=== PATIENT | female | born 1965 | race Caucasian/White ===

== ENCOUNTER 2025-01-23 11:14 | Emergency (ER) | payer OTHER, SELFPAY ==
--- NOTE | ~2025-01-23 | XR_ITS ---
XR foot LT min 3V Ordering provider: Jacquelyn Olvera APRN History: . 3 4 toes pain post fall . Comparison: None. FINDINGS: BONES: No acute fracture or dislocation. Calcaneal spur. JOINT SPACES: Normal. No tarsal coalition. SOFT TISSUES: Normal. IMPRESSION: No acute osseous abnormality left foot. Reviewed, dictated and finalized at location A.
--- NOTE | ~2025-01-23 | XR_ITS ---
XR hip RT 2V w AP pelvis Ordering provider: Jacquelyn Olvera APRN History: . pain post fall x 2 days . Comparison: None. FINDINGS: BONES: No acute fracture or dislocation. HIP JOINT SPACES: Mild bilateral osteoarthritic changes. SACROILIAC JOINT SPACES/LUMBAR SPINE: The sacroiliac joint spaces are normal. Mild degenerative harrington es of the visualized lower lumbar spine. PUBIC SYMPHYSIS: Normal. SOFT TISSUES: Normal. IMPRESSION: No acute osseous abnormality pelvis and right hip. Reviewed, dictated and finalized at location A.
--- NOTE | ~2025-01-23 | XR_ITS ---
HISTORY: dorsal foot pain post fall 2 days COMPARISON: None TECHNIQUE: 3 views of the right foot were performed FINDINGS: No acute or subacute fracture or dislocation is appreciated. No significant degenerative disease is noted. The base of the fifth metatarsal is intact. No calcaneal spur is noted. Trace dorsal soft tissue swelling is present. IMPRESSION: Soft tissue swelling, without acute or subacute fracture. Reviewed, dictated and finalized at location A.
--- NOTE | 2025-01-23 11:16 | ED_ITS ---
HPI - General Adult General Chief complaint: Extremity Injury, Lower Stated complaint: ?broken toe ?whiplash Time Seen by Provider: 01/23/25 11:20 Source: patient and RN notes reviewed Mode of arrival: ambulatory Limitations: no limitations History of Present Illness HPI narrative: 59-year-old female presents to the [facility] with concerns of bilateral foot pain, toe pain, right hip pain and lateral neck pain post trip and fall on Thursday night, 2 nights ago. Related Data Allergies Allergy/AdvReac Type Severity Reaction Status Date / Time Penicillins Allergy Intermediate rash Verified 01/23/25 11:51 acetaminophen (From Vicodin) AdvReac other Verified 01/23/25 11:51 hydrocodone (From Vicodin) AdvReac other Verified 01/23/25 11:51 bee stings AdvReac Intermediate Swelling Uncoded 01/23/25 11:51 Review of Systems Review of Systems: All systems reviewed & are unremarkable except as noted in HPI and below Constitutional: Constitutional: Reports no additional constitutional complaints ENT: Reports system reviewed and no additional complaints, except as documented Cardiovascular: Cardiovascular: Reports no additional cardiovascular complaints, Denies chest pain and Denies dyspnea Respiratory: Respiratory: Reports no additional respiratory complaints, Denies chest congestion, Denies cough and Denies dyspnea Musculoskeletal: Musculoskeletal: Reports as per HPI, Reports back pain and Reports arthralgias Integumentary/Breasts: Skin/Breast: Reports system reviewed and no additional complaints, except as docu PMFSH Comments At the time of my signature, I reviewed and agree with the nursing past medical, surgical, social, and family history. There is no relevant family history pertinent to the patient complaint. Exam Const: General: cooperative, healthy appearing, comfortable, no acute distress, well developed, alert and well nourished Nutritional Appearance: well nourished Orientation/consciousness: patient oriented x3 Limitations: no limitations HENMT: Head: normal to inspection Ears: hearing grossly normal bilaterally and external ears normal Mouth: Yes Normal oral and palatal mucosa present, Yes lip normal, Yes tongue normal and Yes moist mucous membranes Eyes: General: appearance normal, both eyes and all related structures Alignment and Position: alignment normal Neck: Neck: normal visual inspection, full ROM, no lymphadenopathy and no meningeal signs Chest: Chest palpation & inspection: normal inspection of the chest Resp: Effort & Inspection: normal respiratory effort and able to speak in complete sentences Auscultation: clear to auscultation bilaterally, no crackles, no rales, no rhonchi and no wheezes Cardio: Rate: regular rate Back/Spine/Pelvis: Back: no CVA tenderness and No ecchymosis Cervical Spine: normal cervical lordosis, cervical muscular tenderness (Right and left lateral), No Cervical spine tenderness and No step off deformity Thoracic/Lumbar Spine: No thoracic spinal tenderness and No lumbar spinal tenderness Sacroiliac joints: on the right tender to palpation Skin: General skin exam: normal color and no rashes or lesions noted Neuro: General: patient oriented x3, gait normal, moves all extremities and no meningeal signs Cognition (Neuro): normal cognition Speech: normal speech Gait exam (Neuro): Normal gait present Extrem: General: normal to inspection, full ROM, capillary refill normal and normal gait Right lower extremity: hip/thigh Details: tenderness (Lateral hip) Other: Bilateral 2nd, 3rd and 4th toe pain with tenderness. Right dorsal foot tenderness generalized Psych: Appearance: grossly normal and well kempt Mental Status: mental status grossly normal Speech and movement: Normal speech and movement present and Clear speech present Affect: normal affect Attitude: cooperative Course Course Level of Care: Express Care Visit Vital Signs Vital signs: Vital Signs Temperature 97.7 F 01/23/25 11:38 Pulse Rate 89 01/23/25 11:38 Respiratory Rate 16 01/23/25 11:38 Blood Pressure 111/72 01/23/25 11:38 Pulse Oximetry 99 01/23/25 11:38 Temperature 97.7 F 01/23/25 11:38 Pulse Rate 89 01/23/25 11:38 Respiratory Rate 16 01/23/25 11:38 Blood Pressure 111/72 01/23/25 11:38 Pulse Oximetry 99 01/23/25 11:38 Reviewed Medical Decision Making MDM Narrative Medical decision making narrative: Patient sitting comfortably in exam room. Patient is nontoxic, vitals stable. Patient presents with foot pain post fall, right hip pain post fall, lateral neck pain with no midline tenderness. No loss retention of bowel or bladder. No saddle anesthesia. No midline tenderness. Patient is appropriate for outpatient treatment with close follow-up, x-rays are negative. Patient reports having muscle relaxers at home. Will prescribe the Lidoderm patch. Discharge instructions reviewed with patient, as well as provided in writing per nursing staff. The instructions also include specific and strict return/GO TO THE ER as well as f/u information. All questions have been answered, and the patient deny any further questions with discharge and discharge plan. Some parts of this dictation were generated by voice recognition software and may contain typographical and/or grammatical inaccuracies. Differential Diagnosis Differential Diagnosis: Fall, contusion, strain or sprain Medical Records Medical records reviewed: Yes I reviewed the external patient's medical records. Vital Signs Vital Signs: Vital Signs Temperature 97.7 F 01/23/25 11:38 Pulse Rate 89 01/23/25 11:38 Respiratory Rate 16 01/23/25 11:38 Blood Pressure 111/72 01/23/25 11:38 Pulse Oximetry 99 01/23/25 11:38 Temperature 97.7 F 01/23/25 11:38 Pulse Rate 89 01/23/25 11:38 Respiratory Rate 16 01/23/25 11:38 Blood Pressure 111/72 01/23/25 11:38 Pulse Oximetry 99 01/23/25 11:38 Reviewed Lab Data Lab results reviewed: Yes I reviewed the patient's lab results. Labs: Reviewed Imaging Data Radiologist's impression: XR foot LT min 3V Ordering provider: Jacquelyn Olvera APRN History: . 3 4 toes pain post fall . Comparison: None. FINDINGS: BONES: No acute fracture or dislocation. Calcaneal spur. JOINT SPACES: Normal. No tarsal coalition. SOFT TISSUES: Normal. IMPRESSION: No acute osseous abnormality left foot. HISTORY: dorsal foot pain post fall 2 days COMPARISON: None TECHNIQUE: 3 views of the right foot were performed FINDINGS: No acute or subacute fracture or dislocation is appreciated. No significant degenerative disease is noted. The base of the fifth metatarsal is intact. No calcaneal spur is noted. Trace dorsal soft tissue swelling is present. IMPRESSION: Soft tissue swelling, without acute or subacute fracture. XR hip RT 2V w AP pelvis Ordering provider: Jacquelyn Olvera APRN History: . pain post fall x 2 days . Comparison: None. FINDINGS: BONES: No acute fracture or dislocation. HIP JOINT SPACES: Mild bilateral osteoarthritic changes. SACROILIAC JOINT SPACES/LUMBAR SPINE: The sacroiliac joint spaces are normal. Mild degenerative changes of the visualized lower lumbar spine. PUBIC SYMPHYSIS: Normal. SOFT TISSUES: Normal. IMPRESSION: No acute osseous abnormality pelvis and right hip. Critical Care Time Critical Care Time Critical Care Time: No Discharge Plan Discharge Clinical Impression: Contusion of foot, Cervical muscle strain, Acute pain of right hip Patient Disposition: Home Condition: Stable Instructions: Cervical Strain (DC), Foot Contusion (ED), Arthralgia (ED), Hip Pain (ED) Additional Instructions: Take ibuprofen as directed to decrease inflammation and to help pain. Take (muscle relaxer) as directed. Do not drink, drive, operate machinery, or do anything dangerous while taking this medication Exercise:Combine aerobic exercise, like walking or swimming, with specific exercises to keep the muscles in your back and abdomen strong and flexible. Proper Lifting:Be sure to lift heavy items with your legs, not your back. Do not bend over to pick something up. Keep your back straight and bend at your knees. Weight:Maintain a healthy weight. Being overweight puts added stress on your lower back. Avoid Smoking:Both the smoke and the nicotine cause your spine to age faster than normal. Proper Posture:Good posture is important for avoiding future problems. A therapist can teach you how to safely stand, sit, and lift. Use warm moist heat to help with pain. Using topical such as Biofreeze, Jose-Martin or Aspercreme can also help Follow up with Primary provider in 2-3 days, This may become a chronic condition and they will be the one to help manage your pain and order additional testing. Go to the nearest ER if you develop problems with bladder/bowel function, weakness or loss of feeling in one or both of your legs. Patient Language: Serbian Prescriptions: New lidocaine [Lidoderm] 5 % adhesive patch,medicated 1 patch topical DAILY Qty: 15 0RF Rx Instructions: leave on most painful area for up to 12 hrs silver sulfadiazine [Silvadene] 1 % cream 1 applic topical DAILY Qty: 50 0RF Rx Instructions: apply a 1.5 mm thickness Follow-up/Referrals: Jaiden,NIRAV Kimball [Primary Care Provider] - 1 Week (express care follow up ) Stand Alone Forms: Work/School Release IP Time of Disposition: 12:17
[2025-01-23 11:38] VITALS: BP 111/72; PULSE 89; RESP 16; TEMP 36.5; O2SAT 99
== END 2025-01-23 12:29 | disposition home or self-care (01) ==
PROVIDERS: Emergency Provider Nurse Practitioner; PCP Physician Assistant Medical
DX: S90.122A Contusion of left lesser toe(s) without damage to nail, initial encounter (principal); S90.31XA Contusion of right foot, initial encounter; W01.0XXA Fall on same level from slipping, tripping and stumbling without subsequent striking against object, initial encounter; S16.1XXA Strain of muscle, fascia and tendon at neck level, initial encounter; M25.551 Pain in right hip
CPT/HCPCS: 73502; 73630; 99214; G0463